=== PATIENT | male | born 1950 | race Caucasian/White ===

== ENCOUNTER 2021-09-11 17:06 | Outpatient (CLI) | payer MEDICARE, SELFPAY | END 2021-09-11 23:59 | disposition home or self-care (01) | LOC: LABSPEC 17:06 | PROVIDERS: PCP Family Medicine; Visit Provider Physician Assistant | DX: U07.1 COVID-19 (principal); J18.9 Pneumonia, unspecified organism | CPT/HCPCS: 87635; U0003; U0005 ==

== ENCOUNTER 2021-09-14 08:29 | Outpatient (CLI) | payer MEDICARE, SELFPAY ==
[2021-09-14 08:42] VITALS: BP 148/78; PULSE 83; RESP 16; TEMP 36.8; O2SAT 95; BMI 37.9
[2021-09-14] MEDS: 0.9% Saline Lock 10 ML Syringe IV (08:47)
[2021-09-14 09:12] VITALS: BP 148/78; PULSE 76; RESP 16; TEMP 37.1; O2SAT 95
[2021-09-14 10:09] VITALS: BP 130/83; PULSE 78; RESP 16; TEMP 36.8; O2SAT 94
== END 2021-09-14 23:59 | disposition home or self-care (01) ==
LOC: MS3OUT 08:29 → MS3 08:30
PROVIDERS: PCP Family Medicine; Referring Provider Nurse Practitioner Adult Health; Visit Provider Nurse Practitioner Adult Health
DX: U07.1 COVID-19 (principal)
CPT/HCPCS: J7050; M0243; A4216; Q0244